=== PATIENT | female | born 1980 | race African-American/Black ===

== ENCOUNTER 2019-09-28 17:04 | Outpatient (CLI) | payer OTHER ==
[2019-09-28] MEDS ORDERED: OMNIPAQUE 350 MG/ML, 100ML BOTTLE ONE (18:52)
== END 2019-09-28 23:59 | disposition home or self-care (01) ==
LOC: MERGE 17:04 → RAD 17:04
PROVIDERS: ATTEND Family Medicine
DX: R10.31 Right lower quadrant pain (principal)
CPT/HCPCS: 74177; Q9967